=== PATIENT | male | born 1980 | race Two or more races ===

== ENCOUNTER 2020-10-10 15:08 | Emergency (ER) | payer OTHER ==
[~2020-10-10] VITALS: Ht 182.9 cm; Wt 94.0 kg
[2020-10-10] MEDS ORDERED: KETOROLAC 60MG/2ML VIAL IM STA (15:57)
[2020-10-10 17:08] LABS: CLARITY URINE CLEAR (CLEAR); COLOR URINE YELLOW (YELLOW); KETONES URINE NEGATIVE (NEGATIVE); LEUKOCYTE ESTERASE URINE NEGATIVE (NEGATIVE); NITRITE URINE NEGATIVE (NEGATIVE); OCCULT BLOOD URINE NEGATIVE (NEGATIVE); PROTEIN URINE NEGATIVE (NEGATIVE); SPECIFIC GRAVITY URINE 1.019 (1.005-1.030); UROBILINOGEN URINE 0.2 E.U./dL (0.2-1.0)
[2020-10-10] MEDS ORDERED: NAPR-681 PO (17:52)
[2020-10-10] MEDS ORDERED: CYCL5TAB PO (17:52)
[2020-10-10 18:05] VITALS: BP 115/79
== END 2020-10-10 18:05 | disposition home or self-care (01) ==
LOC: ER 15:08
DX: M54.89 Other dorsalgia (principal)
CPT/HCPCS: 71045; 81003; 93005; 96372; 99285; J1885